=== PATIENT | female | born 1990 | race Caucasian/White ===

== ENCOUNTER 2022-04-11 21:36 | Emergency (ER) | payer BC ==
[2022-04-11] MEDS ORDERED: Boostrix 0.5 ML (Tdap) VIAL (>/=7 yrs of age) ONE (21:49)
[2022-04-11] MEDS ORDERED: Clindamycin 150 MG CAP ONE (22:11)
== END 2022-04-11 22:21 | disposition home or self-care (01) ==
LOC: MADERS 21:36
DX: S91.112A Laceration without foreign body of left great toe without damage to nail, initial encounter (principal); L03.032 Cellulitis of left toe; F17.290 Nicotine dependence, other tobacco product, uncomplicated; W26.8XXA Contact with other sharp object(s), not elsewhere classified, initial encounter
CPT/HCPCS: 90471; 90715